=== PATIENT | male | born 1980 | race Caucasian/White ===

== ENCOUNTER 2019-07-25 10:31 | Emergency (ER) | payer BC ==
[2019-07-25] MEDS ORDERED: Diphtheria,Pertussis(Acell),Tetanus Vaccine 0.5 ML SDV IM ONE (11:04)
--- NOTE | 2019-07-25 11:06 | EDM.PDOC ---
ED HPI GENERAL MEDICAL PROBLEM - General Chief Complaint: Lower Extremity Injury/Pain Stated Complaint: RT ANKLE PAIN Time Seen by Provider: 07/25/19 10:40 Source of Information: Reports: Patient History Limitations: Reports: No Limitations - History of Present Illness INITIAL COMMENTS - FREE TEXT/NARRATIVE: Ailyn was jumping into a truck bed this am, and his R foot caught the depression of the tailgate and twisted, inversion type mechanism. There was some pain, and subsequent lt headedness when he slid off the tailgate, losing consciousness for a few seconds. He came to, sat up, and then lost consciousness a second time for a few seconds, experiencing a minor scalp abrasion. He is reporting some mild residual R ankle pain and swelling, and no headache. He has taken no meds. Right Ankle Pain Score (Numeric/FACES): 6 - Related Data Allergies Allergy/AdvReac Type Severity Reaction Status Date / Time No Known Allergies Allergy Verified 07/25/19 10:38 Home Meds: Home Meds NK [No Known Home Meds] 07/25/19 [History] ED ROS GENERAL - Review of Systems Review Of Systems: Comprehensive ROS is negative, except as noted in HPI. ED EXAM, GENERAL - Physical Exam Exam: See Below Exam Limited By: No Limitations General Appearance: Alert, WD/WN, No Apparent Distress Eye Exam: Bilateral Eye: EOMI, Normal Inspection, PERRL Ears: Normal External Exam Nose: Normal Inspection Throat/Mouth: Normal Inspection, Normal Lips, Normal Teeth, Normal Gums, Normal Oropharynx, Normal Voice Head: Normocephalic, Other (minor L scalp abrasion) Neck: Normal Inspection, Supple, Non-Tender, Full Range of Motion Respiratory/Chest: Lungs Clear, Chest Non-Tender Cardiovascular: Regular Rate, Rhythm, No Murmur Back Exam: Normal Inspection Extremities: Limited Range of Motion (minor lateral malleolar swelling, no joint effusion, no laxity to maneuver) Neurological: Alert, Oriented, CN II-XII Intact, Normal Cognition, No Motor/ Sensory Deficits Psychiatric: Normal Affect, Normal Mood Skin Exam: Warm, Dry, Other (minor abrasion overlying anterior scalp) Lymphatic: No Adenopathy Course - Vital Signs Text/Narrative:: I administered an Adacel vax. Simple vasovagal syncope related to initial trauma of doubtful clinical significance. Last Recorded V/S: Last Vital Signs Temp 98.1 C H 07/25/19 10:40 Pulse 61 07/25/19 10:40 Resp 16 07/25/19 10:40 BP 125/78 07/25/19 10:40 Pulse Ox 98 07/25/19 10:40 Departure - Departure Time of Disposition: 11:09 Disposition: Home, Self-Care 01 Condition: Fair Clinical Impression: Abrasion, scalp w/o infection, Vasovagal syncope Sprain of ankle, right Qualifiers: Encounter type: initial encounter Involved ligament of ankle: calcaneofibular ligament Qualified Code(s): S93.411A - Sprain of calcaneofibular ligament of right ankle, initial encounter - Discharge Information *PRESCRIPTION DRUG MONITORING PROGRAM REVIEWED*: Not Applicable *COPY OF PRESCRIPTION DRUG MONITORING REPORT IN PATIENT JEOVANNY: Not Applicable Forms: ED Department Discharge Sepsis Event Note - Evaluation Sepsis Screening Result: No Definite Risk - Focused Exam Vital Signs: Vital Signs Temp Pulse Resp BP Pulse Ox 07/25/19 10:40 98.1 C H 61 16 125/78 98 Date Exam was Performed: 07/25/19 Time Exam was Performed: 11:01 - Problem List & Annotations (1) Abrasion, scalp w/o infection SNOMED Code(s): 57215086, 698949097 Code(s): S00.01XA - ABRASION OF SCALP, INITIAL ENCOUNTER Status: Acute Annotation/Comment:: local skin cares (2) Sprain of ankle, right SNOMED Code(s): 71716527 Code(s): S93.401A - SPRAIN OF UNSPECIFIED LIGAMENT OF RIGHT ANKLE, INIT ENCNTR Status: Acute Annotation/Comment:: wt bearing permitted, activity as tolerated, NSAIDs for comfort, RICE as needed. Qualifiers: Encounter type: initial encounter Involved ligament of ankle: calcaneofibular ligament Qualified Code(s): S93.411A - Sprain of calcaneofibular ligament of right ankle, initial encounter (3) Vasovagal syncope SNOMED Code(s): 132063684 Code(s): R55 - SYNCOPE AND COLLAPSE Status: Acute Annotation/Comment:: rest and observation today, no driving until tomorrow. - Problem List Review Problem List Initiated/Reviewed/Updated: Yes - Assessment/Plan Plan: Follow up with PCP if needed.
== END 2019-07-25 11:17 | disposition home or self-care (01) ==
LOC: EDSEX 10:31 → FB.ED 10:31
DX: S93.411A Sprain of calcaneofibular ligament of right ankle, initial encounter (principal); S00.01XA Abrasion of scalp, initial encounter; R55 Syncope and collapse; Z23 Encounter for immunization; X50.1XXA Overexertion from prolonged static or awkward postures, initial encounter
CPT/HCPCS: 90471; 90715; 99283-25